=== PATIENT | male | born 1980 | race Caucasian/White ===

== ENCOUNTER 2022-04-18 10:23 | Inpatient (IN) | payer BC ==
[~2022-04-18] VITALS: Ht 157.5 cm; Wt 78.9 kg
--- NOTE | 2022-04-18 10:30 | NUR ---
MD at bedside, medical screening exam in progress.
[2022-04-18] MEDS ORDERED: ONDANSETRON 4 MG/2 ML VIAL ONE (10:40)
[2022-04-18] MEDS ORDERED: IOHEXOL 300MG/ML 100 ML INFUS..BTL ONE (10:44)
[2022-04-18] MEDS ORDERED: IV NORMAL SALINE 250 ML IV ONE (10:45)
[2022-04-18] MEDS ORDERED: ONDANSETRON 4 MG/2 ML VIAL IV ONE (10:45)
[2022-04-18] MEDS ORDERED: SWABABLE VALVE TRANSFER SET EA MC ONE (10:45)
[2022-04-18] MEDS ORDERED: IV NORMAL SALINE 100 ML BAG IV ONE ×3 (10:45→12:15)
[2022-04-18 10:54] LABS: HEMATOCRIT 45.6 % (36.7-47.1); MEAN CORPUSCULAR HEMOGLOBIN 29.3 uug (23.8-33.4); MEAN CORPUSCULAR VOLUME 84.5 fL (73.0-96.2); PLATELET COUNT (AUTO) 272 K/uL (152-348)
[2022-04-18 11:12] LABS: CREATININE 1.3 mg/dL (0.6-1.3); POTASSIUM 4.2 mmol/L (3.5-5.1)
[2022-04-18 11:18] LABS: BILIRUBIN,TOTAL 1.4 mg/dL (0.2-1.0); TOTAL PROTEIN, SERUM 7.8 g/dL (6.4-8.2)
[2022-04-18] MEDS ORDERED: MORPHINE SULFATE 2 MG/1 ML DISP.SYRIN IV ONE (12:00)
[2022-04-18] MEDS ORDERED: METRONIDAZOLE 500 MG/NS 100 ML PIGGYBACK IV ONE (12:00)
[2022-04-18] MEDS ORDERED: CEFTRIAXONE 2 G in IV DEXTROSE 5% 100 ML IV ONE (12:00)
[2022-04-18] MEDS ORDERED: MORPHINE SULFATE 4 MG/1 ML DISP.SYRIN ONE (12:25)
[2022-04-18] MEDS ORDERED: METRONIDAZOLE 500 MG/NS 100ML 100 ML IV ONE (12:25)
[2022-04-18] MEDS ORDERED: CEFTRIAXONE 1 G VIAL ONE (12:43)
--- NOTE | 2022-04-18 14:40 | NUR ---
Called 3rd floor for med surg bed, lise said she will call back.
--- NOTE | 2022-04-18 15:45 | NUR ---
Rocephin finished infusing
--- NOTE | 2022-04-18 16:27 | NUR ---
Called report to MAHIN Arana.
[2022-04-18] MEDS ORDERED: MAGNESIUM HYDROXIDE 30 ML LIQUID UDC PO PRN (17:15)
[2022-04-18] MEDS ORDERED: ONDANSETRON 4 MG/2 ML VIAL IV PRN (17:15)
[2022-04-18] MEDS ORDERED: ACETAMINOPHEN 325 MG TABLET PO PRN (17:15)
[2022-04-18] MEDS ORDERED: MORPHINE SULFATE 2 MG/1 ML DISP.SYRIN IV PRN (17:15)
[2022-04-18] MEDS ORDERED: PIPERACILLIN SODIUM/TAZOBACTAM 4.5 G in IV DEXTROSE 5% 50 ML IV SCH (17:15)
--- NOTE | 2022-04-18 18:00 | NUR ---
Received pt from ER, pt complaining of abdominal pain with diagnosis of sigmoid diverticulitis. Pt lives with roommate, is fully vaccinated with moderna and tested negative for rapid covid. Pt is currently on clear liquid diet, comfort measures have been provided, call light within reach, will endorse to accountancy professor. orders in place.
[2022-04-18 18:08] VITALS: BP 119/70
[2022-04-18] MEDS: PIPERACILLIN SODIUM/TAZOBACTAM 3.375 G in IV DEXTROSE 5% 100 ML IV SCH (19:21)
[2022-04-18] MEDS: IV NS 1000 ML 1,000 ML IV PRN (19:22)
[2022-04-18 20:00] VITALS: BP 110/70
[2022-04-18] MEDS: HYDROCODONE/APAP 10-325 MG TABLET PO PRN (21:52)
[2022-04-18] MEDS ORDERED: MAG HYDROX/AL HYDROX/SIMETH 30 ML LIQUID UDC PO PRN (22:00)
[2022-04-19] MEDS: PIPERACILLIN SODIUM/TAZOBACTAM 3.375 G in IV DEXTROSE 5% 100 ML IV SCH ×3 (02:05→17:05)
[2022-04-19 04:16] VITALS: BP 98/58
[2022-04-19] MEDS ORDERED: ALBUTEROL SULFATE 2.5 MG/3 ML NEBU NEB PRN (04:45)
[2022-04-19] MEDS ORDERED: IPRATROPIUM BROMIDE 0.5 MG/2.5 ML NEBU NEB PRN (04:45)
[2022-04-19] MEDS: PANTOPRAZOLE SODIUM 40 MG TABLET.DR PO SCH (06:32)
[2022-04-19] MEDS: HYDROCODONE/APAP 10-325 MG TABLET PO PRN ×3 (06:35→23:31)
[2022-04-19] MEDS ORDERED: ALPRAZOLAM 0.5 MG TABLET PO PRN (06:45)
--- NOTE | 2022-04-19 07:04 | NUR ---
Pt rested well in between care; c/o pain x2 and medicated with [place]; c/o wheezing, referred to WELDER [employer]TER GAS Leora and ordered HHN with good results; ptis supposed to have a blood draw, he went into panic attack, referred to ERIKA Corey again and ordered Xanax and given to Wolfgang; Endorsed to Herman STOCKTON to call lab at 0800 to draw blood. continue plan of care.
[2022-04-19 08:00] LABS: HEMATOCRIT 37.3 % (36.7-47.1); MEAN CORPUSCULAR HEMOGLOBIN 29.7 uug (23.8-33.4); MEAN CORPUSCULAR VOLUME 85.2 fL (73.0-96.2); PLATELET COUNT (AUTO) 198 K/uL (152-348)
[2022-04-19 08:18] LABS: CREATININE 1.2 mg/dL (0.6-1.3); PHOSPHOROUS 1.7 mg/dL (2.5-4.9); POTASSIUM 3.7 mmol/L (3.5-5.1)
[2022-04-19 08:20] LABS: THYROID STIMULATING HORMONE 0.599 mIU/mL (0.358-3.740)
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
[2022-04-19 11:13] VITALS: BP 98/55
[2022-04-19] MEDS ORDERED: NEUTRA PHOS PACKET PO ONE (11:30)
[2022-04-19] MEDS: IV NS 1000 ML 1,000 ML IV PRN (12:22)
[2022-04-19 15:04] VITALS: BP 121/78
[2022-04-19] MEDS: HYDROCODONE/APAP 5-325MG TABLET PO PRN (16:06)
[2022-04-19] MEDS ORDERED: SODIUM PHOSPHATE MM 15 MMOL in IV NORMAL SALINE 250 ML IV ONE (17:00)
[2022-04-19 20:19] VITALS: BP 115/70
[2022-04-20] MEDS: PIPERACILLIN SODIUM/TAZOBACTAM 3.375 G in IV DEXTROSE 5% 100 ML IV SCH ×3 (01:09→17:40)
[2022-04-20 04:45] VITALS: BP 103/56
[2022-04-20 05:45] LABS: HEMATOCRIT 36.9 % (36.7-47.1); MEAN CORPUSCULAR HEMOGLOBIN 29.9 uug (23.8-33.4); MEAN CORPUSCULAR VOLUME 85.3 fL (73.0-96.2); PLATELET COUNT (AUTO) 196 K/uL (152-348)
[2022-04-20] MEDS: PANTOPRAZOLE SODIUM 40 MG TABLET.DR PO SCH (06:05)
[2022-04-20] MEDS: IV NS 1000 ML 1,000 ML IV PRN (06:05)
[2022-04-20 06:11] LABS: BILIRUBIN,TOTAL 0.5 mg/dL (0.2-1.0); CREATININE 1.2 mg/dL (0.6-1.3); MAGNESIUM 2.3 mg/dL (1.8-2.4); PHOSPHOROUS 3.1 mg/dL (2.5-4.9); POTASSIUM 4.6 mmol/L (3.5-5.1); TOTAL PROTEIN, SERUM 6.5 g/dL (6.4-8.2)
[2022-04-20] MEDS: HYDROCODONE/APAP 5-325MG TABLET PO PRN ×2 (08:50→20:49)
--- NOTE | 2022-04-20 08:50 | NUR ---
RECEIVED PT ON BED RESTING COMFORTABLY. NO SOB NOTED. PT COMPLAIN OF ABDOMINAL PAIN 4/10 ON PAIN SCALE. NORCO 5-325MG PRN WAS GIVEN. WILL REASSES IN 1HR.
[2022-04-20 11:17] VITALS: BP 110/63
[2022-04-20] MEDS ORDERED: ACET-2154 PO (11:47)
--- NOTE | 2022-04-20 14:40 | NUR ---
DR. SANCHEZ VISITED THE PT. TALKED OF POSSIBLE DISCHARGE AM [place] IS SYMPTOM CONTINUE TO IMPROVE. CONTINUE PLAN OF CARE
[2022-04-20 15:13] VITALS: BP 105/67
[2022-04-20 19:47] VITALS: BP 111/67
[2022-04-21] MEDS: PIPERACILLIN SODIUM/TAZOBACTAM 3.375 G in IV DEXTROSE 5% 100 ML IV SCH ×2 (01:21→09:16)
[2022-04-21] MEDS: IV NS 1000 ML 1,000 ML IV PRN (01:28)
[2022-04-21 04:36] VITALS: BP 110/70
[2022-04-21] MEDS: PANTOPRAZOLE SODIUM 40 MG TABLET.DR PO SCH (06:08)
[2022-04-21 08:50] VITALS: BP 115/76
[2022-04-21] MEDS: HYDROCODONE/APAP 10-325 MG TABLET PO PRN (08:55)
--- NOTE | 2022-04-21 10:00 | NUR ---
Seen by Dr. Garzon. States pain continues. Instructed ok to be discharged and follow up with pmd.
--- NOTE | 2022-04-21 13:00 | NUR ---
Prepared for discharge. IV Dc'd. Angiocath removed intact. Friend Dawit en route.
--- NOTE | 2022-04-21 13:20 | NUR ---
Discharged ambulatory to friend Bill in auto. No c/o discomfort.
== END 2022-04-21 13:15 | disposition home or self-care (01) | DRG 392 ==
LOC: ER 10:23 → MEDSURG3 16:38
DX: K57.20 Diverticulitis of large intestine with perforation and abscess without bleeding (principal); J45.909 Unspecified asthma, uncomplicated; Z20.822 Contact with and (suspected) exposure to COVID-19; D72.829 Elevated white blood cell count, unspecified; R10.9 Unspecified abdominal pain
CPT/HCPCS: 36415; 76770; 83690; 83735; 84100; 84443; 85025; 94664; 97161; A4663; G0378; J0696; J2270; J2405; J2543; J3490; J3590; J7040; Q9967